=== PATIENT | male | born 2000 | race Two or more races ===

== ENCOUNTER 2019-10-15 15:44 | Emergency (ER) | payer SELFPAY ==
[~2019-10-15] VITALS: Ht 170.2 cm; Wt 95.3 kg
[2019-10-15 15:54] VITALS: BP 153/92
[2019-10-15] MEDS ORDERED: IBUPROFEN 800 MG TAB PO ONE (17:15)
== END 2019-10-15 17:25 | disposition home or self-care (01) ==
LOC: ER 15:44
DX: S83.512A Sprain of anterior cruciate ligament of left knee, initial encounter (principal); X50.0XXA Overexertion from strenuous movement or load, initial encounter; Y93.9 Activity, unspecified; Y99.8 Other external cause status; Y92.9 Unspecified place or not applicable
CPT/HCPCS: 73562

== ENCOUNTER 2020-05-16 02:31 | Emergency (ER) | payer SELFPAY ==
[~2020-05-16] VITALS: Ht 170.2 cm; Wt 90.7 kg
[2020-05-16] MEDS ORDERED: MORPHINE SULFATE 4 MG/ML SYR/VIAL ONE (02:37)
[2020-05-16] MEDS ORDERED: ONDANSETRON HCL 4 MG/2 ML VIAL ONE (02:37)
[2020-05-16] MEDS ORDERED: ONDANSETRON HCL 4 MG/2 ML VIAL IV ONE (03:00)
[2020-05-16] MEDS ORDERED: MORPHINE SULFATE 4 MG/ML SYR/VIAL IV ONE (03:00)
[2020-05-16 03:07] VITALS: BP 105/50
== END 2020-05-16 03:03 | disposition short-term general hospital (02) ==
LOC: ER 02:32
DX: S31.139A Puncture wound of abdominal wall without foreign body, unspecified quadrant without penetration into peritoneal cavity, initial encounter (principal); S01.531A Puncture wound without foreign body of lip, initial encounter; W34.09XA Accidental discharge from other specified firearms, initial encounter; Y93.89 Activity, other specified; Y92.89 Other specified places as the place of occurrence of the external cause; Y99.8 Other external cause status
CPT/HCPCS: 72170; 96374; 96375; 99285; J2270; J2405

== ENCOUNTER 2020-05-21 15:18 | Emergency (ER) | payer MEDICAID ==
[~2020-05-21] VITALS: Ht 170.2 cm; Wt 90.7 kg
[2020-05-21 18:28] VITALS: BP 143/92
== END 2020-05-21 20:10 | disposition home or self-care (01) ==
LOC: ER 15:18
DX: S71.03 Puncture wound without foreign body of hip (principal); M25.551 Pain in right hip; X58.XXXD Exposure to other specified factors, subsequent encounter